=== PATIENT | male | born 1955 | race Caucasian/White ===

== ENCOUNTER 2024-04-21 22:52 | Inpatient (IN) | payer OTHER ==
[2024-04-22] MEDS ORDERED: Ondansetron PF 4 MG/2 ML Vial IVP PRN (00:15)
[2024-04-22] MEDS ORDERED: Glucagon 1 MG/ML KIT IM PRN (00:15)
[2024-04-22] MEDS ORDERED: Dextrose 50% Abboject 50 ML SYRINGE SLOW IVP PRN (00:15)
[2024-04-22] MEDS ORDERED: Dextrose 5% in Water 1,000 ML IV PRN (00:15)
[2024-04-22] MEDS: traMADol HCl 50 MG TAB PO PRN (02:33)
[2024-04-22 06:05] VITALS: BMI 27.4
[2024-04-22 06:21] LABS: #Basophils 0.04 10x3/uL (0.0-0.2); %Basophils 0.6 % (0.0-1.0); %Eosinophils 6.9 % (0.0-10.0); %Lymphocytes 14.7 % (21.0-51.0); %Monocytes 9.9 % (0.0-10.0); %Neutrophils 67.5 % (42.0-75.0); Hematocrit 23.2 % (42.0-52.0); Hemoglobin 7.6 g/dL (14.0-18.0); Mean Corpuscular HGB CONC 32.8 g/dL (32.0-36.0); Mean Corpuscular Hemoglobin 30.9 pg (27.0-31.0); Mean Corpuscular Volume 94.3 fL (78.0-98.0); Mean Platelet Volume 10.2 fL (7.4-10.4); Platelet Count 275 10x3/uL (130-400); RBC Distribution Width 13.6 % (11.5-14.5); Red Blood Cell (RBC) Count 2.46 mill/uL (4.70-6.10)
[2024-04-22 06:22] LABS: Anion Gap 10 mmol/L (10-20); BUN (Urea Nitrogen) 24 mg/dL (8.4-25.7); Calc. Creatinine Clearance 80 mL/min (70-130); Carbon Dioxide 25 mmol/L (23-31); Chloride 106 mmol/L (98-107); Estimated GFR 84; Glucose 86 mg/dL (80-115); Potassium 4.1 mmol/L (3.5-5.1); Sodium 137 mmol/L (136-145)
[2024-04-22] MEDS ORDERED: Cyanocobalamin 1000 MCG/ML VIAL IM SCH (08:30)
[2024-04-22] MEDS: Folic Acid 1 MG TAB PO SCH (11:44)
[2024-04-22] MEDS: Atorvastatin Calcium 10 MG TAB PO SCH (11:44)
[2024-04-22] MEDS: Lisinopril 20 MG TAB PO SCH (11:45)
[2024-04-22] MEDS: hydrALAZINE 25 MG TAB PO SCH (11:45)
[2024-04-22] MEDS: Sertraline 100 MG TAB PO SCH (11:55)
[2024-04-22] MEDS: Pantoprazole DR 40 MG TAB PO SCH (11:55)
[2024-04-22] MEDS: Methocarbamol 500 MG TAB PO PRN (12:04)
[2024-04-22] MEDS: Acetaminophen 325 MG TAB PO PRN (20:37)
[2024-04-22] MEDS: Divalproex Sodium 500 MG ER.TAB PO SCH (20:38)
[2024-04-23] MEDS: Apixaban 2.5 MG TAB PO SCH (10:02)
[2024-04-23] MEDS: hydrALAZINE 25 MG TAB PO SCH (14:40)
[2024-04-23] MEDS: Lisinopril 20 MG TAB PO SCH (21:11)
[2024-04-24 08:19] LABS: #Basophils 0.03 10x3/uL (0.0-0.2); %Basophils 0.5 % (0.0-1.0); %Eosinophils 6.1 % (0.0-10.0); %Lymphocytes 18.6 % (21.0-51.0); %Neutrophils 64.5 % (42.0-75.0); Hematocrit 23.8 % (42.0-52.0); Hemoglobin 7.8 g/dL (14.0-18.0); Mean Corpuscular HGB CONC 32.8 g/dL (32.0-36.0); Mean Corpuscular Hemoglobin 30.5 pg (27.0-31.0); Mean Platelet Volume 9.5 fL (7.4-10.4); Platelet Count 279 10x3/uL (130-400); RBC Distribution Width 13.5 % (11.5-14.5); Red Blood Cell (RBC) Count 2.56 mill/uL (4.70-6.10)
[2024-04-24 08:32] LABS: Anion Gap 13 mmol/L (10-20); BUN (Urea Nitrogen) 19 mg/dL (8.4-25.7); Calc. Creatinine Clearance 81 mL/min (70-130); Calcium 8.3 mg/dL (7.8-10.44); Carbon Dioxide 24 mmol/L (23-31); Chloride 106 mmol/L (98-107); Estimated GFR 86; Glucose 92 mg/dL (80-115); Potassium 3.6 mmol/L (3.5-5.1); Sodium 139 mmol/L (136-145)
[2024-04-24] MEDS: hydrALAZINE 25 MG TAB PO SCH (15:51)
[2024-04-24] MEDS: Apixaban 5 MG TAB PO SCH (15:51)
[2024-04-25 05:36] LABS: #Basophils Less than 0.03 10x3/uL (0.0-0.2); %Basophils 0.4 % (0.0-1.0); %Eosinophils 9.4 % (0.0-10.0); %Lymphocytes 15.4 % (21.0-51.0); %Monocytes 10.7 % (0.0-10.0); %Neutrophils 63.9 % (42.0-75.0); Hemoglobin 7.9 g/dL (14.0-18.0); Mean Corpuscular HGB CONC 32.9 g/dL (32.0-36.0); Mean Corpuscular Hemoglobin 30.2 pg (27.0-31.0); Mean Corpuscular Volume 91.6 fL (78.0-98.0); Mean Platelet Volume 9.8 fL (7.4-10.4); Platelet Count 291 10x3/uL (130-400); RBC Distribution Width 13.5 % (11.5-14.5); Red Blood Cell (RBC) Count 2.62 mill/uL (4.70-6.10)
[2024-04-25 05:56] LABS: Anion Gap 11 mmol/L (10-20); BUN (Urea Nitrogen) 22 mg/dL (8.4-25.7); Calc. Creatinine Clearance 72 mL/min (70-130); Calcium 8.5 mg/dL (7.8-10.44); Carbon Dioxide 24 mmol/L (23-31); Chloride 106 mmol/L (98-107); Estimated GFR 75; Glucose 90 mg/dL (80-115); Potassium 3.8 mmol/L (3.5-5.1); Sodium 137 mmol/L (136-145)
[2024-04-25] MEDS: Apixaban 5 MG TAB PO SCH (10:05)
[2024-04-26] MEDS ORDERED: diphenhydrAMINE 25 MG CAP PO PRN (18:58)
[2024-04-26] MEDS: hydrALAZINE 20 MG/ML VIAL SLOW IVP PRN (23:52)
[2024-04-27] MEDS: hydrALAZINE 25 MG TAB PO SCH (01:10)
[2024-04-27] MEDS: diphenhydrAMINE 25 MG CAP PO SCH (03:48)
[2024-04-27] MEDS ORDERED: Furosemide 20 MG TAB PO SCH (09:00)
[2024-04-27] MEDS: Furosemide 40 MG TAB PO SCH (10:06)
[2024-04-27 12:56] VITALS: BP 166/77; TEMP 98.1
[2024-05-01] MEDS ORDERED: Apixaban 5 MG TAB PO SCH (21:00)
== END 2024-04-27 16:22 | DRG 552 ==
LOC: SURG A 23:57 → EEVIPCON 23:57 → OBSVTOIN 04-22 00:15
PROVIDERS: ADMIT Surgery; ATTEND Internal Medicine
DX: S22.029A Unspecified fracture of second thoracic vertebra, initial encounter for closed fracture (principal); I82.441 Acute embolism and thrombosis of right tibial vein; S22.039A Unspecified fracture of third thoracic vertebra, initial encounter for closed fracture; W18.30XA Fall on same level, unspecified, initial encounter; D64.9 Anemia, unspecified; E78.5 Hyperlipidemia, unspecified; I10 Essential (primary) hypertension; F39 Unspecified mood [affective] disorder; G89.18 Other acute postprocedural pain; M25.562 Pain in left knee; I25.2 Old myocardial infarction; Z88.2 Allergy status to sulfonamides; Z79.82 Long term (current) use of aspirin; Z79.899 Other long term (current) drug therapy; Z82.49 Family history of ischemic heart disease and other diseases of the circulatory system; Z79.01 Long term (current) use of anticoagulants
CPT/HCPCS: 36415; 72070; 80048; 83880; 85025; 93970; J0360